=== PATIENT | male | born 1995 | race Caucasian/White ===

== ENCOUNTER → 2018-11-18 | Outpatient (CLI) | payer OTHER ==
--- NOTE | 2018-11-18 16:04 | REP ---
CT of the sinuses without contrast Indication: Chronic maxillary sinusitis. Comparison: None Technique: Axial CT of the maxillofacial bones were performed without contrast. Bone reformatted images were obtained within the axial coronal planes. Findings: Frontal sinuses: Clear bilaterally. Ethmoid air cells: Clear bilaterally. Sphenoid sinuses: Clear bilaterally. There is an incomplete midline septum and a septum on the left on the left the pterygoid recess. Maxillary sinuses: The left maxillary sinus is clear. There is a small mucous retention cyst or polyp within the right maxillary sinus along the medial wall. The ostiomeatal units are patent. Nasal passages and septum: Mild rightward deviation of the nasal septum anteriorly . The nasal bones are deviated to the left. The middle turbinates are paradoxical. Mastoid air cells: Clear bilaterally. Other: The cribriform plate and fovea ethmoidalis are intact. Prominence of the adenoid tonsils. Impression: Mucous retention cyst or polyp within the right maxillary sinus. Otherwise the paranasal sinuses are clear. Prominence of the adenoid tonsils. Electronically Signed by Padmini Snow MD 11/18/2018 03:56 P
== END ==
LOC: M RAD 14:54
PROVIDERS: ATTEND Otolaryngology
DX: J31.0 Chronic rhinitis (principal)